=== PATIENT | male | born 1950 | race African-American/Black ===

== ENCOUNTER 2016-09-13 03:29 | Emergency (ER) | payer BC, MEDICARE ==
--- NOTE | 2016-09-13 04:14 | ER Document Report ---
ED General - General Chief Complaint: Shoulder Pain Stated Complaint: SHOULDER PAIN Notes: Patient's 65-year-old male presents for complaint of bilateral shoulder pain. He says the pain radiates upward near his neck. Says pain is much worse with any movement. Pain also goes across clavicles. No pain below the clavicles. No anterior chest pain. No back pain. No weakness or numbness into the arms. He does have history of gout. He says he's had similar pain in the shoulder from gout in the past. He denies any recent injuries or trauma. No other complaints at this time. TRAVEL OUTSIDE OF THE [place] IN LAST 30 DAYS: No - Related Data Allergies/Adverse Reactions: acetaminophen [From Percocet] Allergy (Verified 09/13/16 03:44) Syncope oxycodone [From Percocet] Allergy (Verified 09/13/16 03:44) Syncope Past Medical History - Social History Smoking Status: Never Smoker Chew tobacco use (# tins/day): No Frequency of alcohol use: None Drug Abuse: None Family History: Reviewed & Not Pertinent Patient has suicidal ideation: No Patient has homicidal ideation: No Renal/ Medical History: Denies: Hx Peritoneal Dialysis Review of Systems - Review of Systems Notes: General Appearance: Well nourished, alert, cooperative, no acute distress, mild obvious discomfort. Vitals: reviewed, See vital signs table. Head: no swelling or tenderness to the head Eyes: PERRL, EOMI, Conjuctiva clear Mouth: No decreasd moisture Throat: No tonsillar inflammation, No airway obstruction, No lymphadenopathy Neck: Supple, no neck tenderness, No thyromegaly Lungs: No wheezing, No rales, No rhonci, No accessory muscle use, good air exchange bilaterally. Heart: Normal rate, Regular rythm, No murmur, no rub Abdomen: Normal BS, soft, No rigidity, No abdominal tenderness, No guarding, no rebound, no abdominal masses, no organomegaly Extremities: strength 5/5 in all extremities, good pulses in all extremities, pain in bilateral shoulders which is worse with movement., no edema. Skin: warm, dry, appropriate color, no rash Neuro: speech clear, oriented x 3, normal affect, responds appropriately to questions. Physical Exam - Vital signs Vitals: Temp Pulse Resp BP Pulse Ox 97.9 F 91 18 153/77 H 96 09/13/16 03:42 09/13/16 03:42 09/13/16 03:42 09/13/16 03:42 09/13/16 03:42 - Notes Notes: General Appearance: Well nourished, alert, cooperative, no acute distress, moderate obvious discomfort. Vitals: reviewed, See vital signs table. Head: no swelling or tenderness to the head Eyes: PERRL, EOMI, Conjuctiva clear Mouth: No decreasd moisture Neck: Supple, mild cervical paraspinal musculature tenderness to palpation. Lungs: No wheezing, No rales, No rhonci, No accessory muscle use, good air exchange bilaterally. Heart: Normal rate, Regular rythm, No murmur, no rub Extremities: strength 5/5 in all extremities, good pulses in all extremities, shows no swelling or redness to the shoulders. No warmth. Patient does have increased pain when I put shoulder through range of motion. Some pain to palpation across the shoulders and up towards the neck as well., no edema. Skin: warm, dry, appropriate color, no rash Neuro: speech clear, oriented x 3, normal affect, responds appropriately to questions. Course - Vital Signs Vital signs: Temp Pulse Resp BP Pulse Ox 97.9 F 91 18 153/77 H 96 09/13/16 03:42 09/13/16 03:42 09/13/16 03:42 09/13/16 03:42 09/13/16 03:42 - Laboratory Result Diagrams: 09/13/16 04:46 Laboratory results interpreted by me: 09/13/16 04:46 Sodium 146.8 H Chloride 108 H BUN 29 H Creatinine 2.23 H Est GFR ( Amer) 36 L Est GFR (Non-Af Amer) 30 L - EKG Interpretation by Me Additional EKG results interpreted by me: 09/13/16 04:31 EKG is reviewed and interpreted by me. EKG shows normal sinus rhythm with rate of [address] segment elevation or depression. Patient has what appears to be an incomplete left bundle branch block. There is no old EKG available for comparison. [place] interval and QTC intervals are within normal range. QRS duration is slightly prolonged. - Transfer of Care Notes: 09/13/16 06:05 Patient continues it well. Suspect this pain is mostly musculoskeletal. Think it could be resulting from some stiffness in his trapezius muscles, Pepito neck pain. His pain palpation bilateral trapezius muscles going into her shoulders. Being that he had no recent trauma I did order an EKG and cardiac enzyme to make sure is no evidence of atypical presentation of a [place]. His symptoms have been ongoing for 3 days. If he was having any form of infarction his troponin should be elevated. Troponin was completely normal. His chemistry panel did show some elevation of his creatinine. I have no old labs to compare to. Patient says he does remember his physician telling him in the past that his kidney function is little bit off, but he is unsure exactly what his serum creatinine is at baseline. His symptoms really do not seem consistent with gout. He has no redness or warmth or swelling to joints. I will place him on NSAIDs because of the renal sufficiency. I will not give him steroids because of his history of diabetes. I will place him on tramadol. Hopefully this will give him some relief and help improve his symptoms. I informed him it's extremely poor and he follows up closely with his doctor next 2-3 days. I encouraged him to return to ER immediately if he has worsening pain, any chest pain, difficulty breathing, or if he feels unwell. Patient agrees with plan and will be discharged home. I once again think cardiac disease is unlikely being and location of the pain, negative cardiac enzyme, and negative EKG. I think dissection is highly unlikely being that the patient is not tachycardic, has equal peripheral pulses, he is in no distress, and has normal mediastinum on chest x-ray. Dictation of this chart was performed using voice recognition software; therefore, there may be some unintended grammatical errors. Discharge - Discharge Clinical Impression: Shoulder pain, bilateral Qualifiers: Chronicity: acute Qualified Code(s): M25.511 - Pain in right shoulder; M25.512 - Pain in left shoulder Condition: Good Disposition: HOME, SELF-CARE Additional Instructions: Your kidney function is measured by a laboratory value called the serum creatinine your level today was 2.2. Please follow-up with her doctor this week for reevaluation and also to recheck your kidney function. Please bring this paperwork with you to an appointment so he knows what your serum creatinine was here today. Please take the pain medication as prescribed. Do not take more than prescribed. Medication may make you a little bit sleepy and therefore he should not drive after taking the medication. Please return to the ER immediately if you have worsening pain, fevers, difficulty breathing, or feel unwell. Dictation of this chart was performed using voice recognition software; therefore, there may be some unintended grammatical errors.
[2016-09-13 05:50] LABS: ANION GAP 14 (5-19); BLOOD UREA NITROGEN 29 mg/dL (7-20); CALCIUM 9.4 mg/dL (8.4-10.2); CARBON DIOXIDE 25 mmol/L (22-30); CHLORIDE 108 mmol/L (98-107); CREATININE RESULT 2.23 mg/dL (0.52-1.25); GLUCOSE 83 mg/dL (75-110); POTASSIUM 4.1 mmol/L (3.6-5.0); SODIUM 146.8 mmol/L (137-145)
[2016-09-13] MEDS ORDERED: TRAMADOL HCL 50 MG TABLET PO ONE (06:03)
[2016-09-13 06:32] VITALS: BP 151/74
--- NOTE | 2016-09-13 15:50 | EKG REPORT ---
SEVERITY:- ABNORMAL ECG - SINUS RHYTHM NONSPECIFIC INTRAVENTRICULAR CONDUCTION DELAY ANTERIOR INFARCT, AGE INDETERMINATE : Confirmed by: Darrell Jason 13-Sep-2016 15:49:19
== END 2016-09-13 06:27 | disposition home or self-care (01) ==
LOC: ER 03:29
DX: M25.511 Pain in right shoulder (principal); M25.512 Pain in left shoulder; M54.2 Cervicalgia
CPT/HCPCS: 36415; 71010; 80048; 84484; 93005; 93010; 99284